=== PATIENT | female | born 1960 | race Caucasian/White ===

== ENCOUNTER → 2017-10-28 | Outpatient (CLI) | payer OTHER, MEDICAID | LOC: FIMAGING 12:43 | PROVIDERS: ATTEND Family Medicine | DX: G24.3 Spasmodic torticollis (principal); M43.12 Spondylolisthesis, cervical region; M54.12 Radiculopathy, cervical region ==

== ENCOUNTER → 2018-01-30 | Outpatient (CLI) | payer OTHER, MEDICAID | LOC: FIMAGING 13:22 | PROVIDERS: ATTEND Physician Assistant Surgical | DX: M50.021 Cervical disc disorder at C4-C5 level with myelopathy (principal); M50.13 Cervical disc disorder with radiculopathy, cervicothoracic region ==

== ENCOUNTER → 2018-05-07 | Outpatient (CLI) | payer OTHER, MEDICAID | LOC: FIMAGING 15:15 | PROVIDERS: ATTEND Anesthesiology Pain Medicine | DX: S76.312A Strain of muscle, fascia and tendon of the posterior muscle group at thigh level, left thigh, initial encounter (principal); M25.852 Other specified joint disorders, left hip; M76.892 Other specified enthesopathies of left lower limb, excluding foot; M99.73 Connective tissue and disc stenosis of intervertebral foramina of lumbar region; M51.36 Other intervertebral disc degeneration, lumbar region; M51.37 Other intervertebral disc degeneration, lumbosacral region; M12.88 Other specific arthropathies, not elsewhere classified, other specified site; M51.26 Other intervertebral disc displacement, lumbar region; M51.25 Other intervertebral disc displacement, thoracolumbar region ==

== ENCOUNTER → 2018-07-10 | Outpatient (CLI) | payer OTHER, MEDICAID | LOC: BHFA 09:00 | PROVIDERS: ATTEND Internal Medicine Cardiovascular Disease | DX: R00.2 Palpitations (principal); R94.31 Abnormal electrocardiogram [ECG] [EKG] ==

== ENCOUNTER → 2018-08-07 | Outpatient (CLI) | payer OTHER, MEDICAID | LOC: BHFA 14:00 | PROVIDERS: ATTEND Internal Medicine Interventional Cardiology | DX: R06.02 Shortness of breath (principal) ==